=== PATIENT | female | born 1995 | race Two or more races ===

== ENCOUNTER 2020-02-04 18:00 | Emergency (ER) | payer OTHER ==
[~2020-02-04] VITALS: Ht 154.9 cm; Wt 52.6 kg
== END 2020-02-04 20:01 | disposition home or self-care (01) ==
LOC: ER 18:00
DX: O26.891 Other specified pregnancy related conditions, first trimester (principal); K59.09 Other constipation; Z34.01 Encounter for supervision of normal first pregnancy, first trimester